=== PATIENT | female | born 1980 | race Caucasian/White ===

== ENCOUNTER 2021-01-24 10:04 | Outpatient (CLI) | payer OTHER, SELFPAY ==
--- NOTE | ~2021-01-24 | US_ITS ---
EXAMINATION: US OB <= 14 weeks fetus EXAM DATE: 01/24/2021 10:30 INDICATION: Threatened , vaginal spotting. 1st trimester. TECHNIQUE: Pelvic obstetrical transabdominal sonogram was performed by a technologist. There are mu ltiple grayscale and Doppler images available for interpretation. There are no earlier studies of th is gestation for comparison. FINDINGS: Uterus measures 10.6 x 6.5 x 8.6 cm. There is intrauterine gestation sac. The 2 cm crown -rump length corresponds to estimated gestational age by ultrasound of 8 weeks 4 days. There is no fe dana heart beat confirmed at this time as would be expected for crown-rump length this size. There i s no sonographic evidence of subchorionic hemorrhage. Left ovary morphologically normal and has Dop pler flow, right not identified. IMPRESSION: demise. Reviewed, dictated and finalized at location B. IMPRESSION: demise.
== END 2021-01-24 10:05 | disposition home or self-care (01) ==
LOC: ANHIMG 10:09
PROVIDERS: Visit Provider Obstetrics & Gynecology
DX: O20.0 Threatened abortion (principal)
CPT/HCPCS: 76801

== ENCOUNTER 2021-01-25 01:26 | Day surgery (SDC) | payer OTHER, SELFPAY ==
[2021-01-24 14:33] VITALS: BMI 32.0
--- NOTE | 2021-01-24 14:55 | WPDANESEPPF ---
Anes - Initial Pre Proc Eval Procedure: Operation Date: 01/25/21 14:30 Proposed Procedures p Suction Dilation and Curettage - Slime Clark MD Date/Time: 01/24/21 14:55 Surgeon: Slime Clark MD Pre Op Diagnosis: missed ab Patient Data Age: 40 Gender: F Height: 1.56 m Weight: 78.18 kg Allergies Allergy/AdvReac Type Severity Reaction Status Date / Time No Known Allergies Allergy Verified 10/31/17 13:41 Home Medications Medication Instructions Recorded Confirmed Type aspirin 81 mg PO DAILY 01/24/21 01/24/21 History [id number] 1 tablet PO DAILY 01/24/21 01/24/21 History [ + Iron] Patient hx anesthesia problems: none Family hx anesthesia problems: none PMF Past Medical History Medical History Obesity Smoker Social History Social History Smoking packs per day: 1.5 Smoking cigarettes per day: 30.0 Years smoked: 17 Smoking pack-years: 25.50 Smoking status: Current every day smoker Tobacco type: cigarettes Second hand tobacco smoke exposure: Yes Alcohol intake: current Alcohol use details: STATES MAYBE 3 DRINKS A YEAR Substance use: never Substance use type: does not use Spiritual care concerns: No Anes - Eval Final PreProcedure Day of Procedure 01/24/21 14:55 Patient weight: overweight Heart: regular rate and rhythm Lungs: clear to auscultation and normal air movement Airway: Mallampati scale class II Neurological: alert and oriented Last oral intake: >/= 8 hours ASA classification: II Emergent: no Anesthetic plan: proceed Anesthesia type and monitoring: general LMA Informed Consent: The patient's anesthetic plan and its attendant risks and benefits were discussed with the patient/family/POA. Questions were solicited and answers provided to the satisfaction of the patient/family/POA.
[2021-01-25] MEDS: ACETAMINOPHEN 500 MG TABLET 1000 MG PO (13:15)
[2021-01-25 13:22] VITALS: BP 112/74; PULSE 75; RESP 16; TEMP 37.1; O2SAT 99
[2021-01-25] MEDS: LACTATED RINGERS 1,000 ML 30 ML IV CONT (13:30)
--- NOTE | 2021-01-25 14:17 | PM.IMHP ---
H&P: HPI History of Present Illness Date/Time: 01/25/21 14:17 Chief Complaint: miscarriage Narrative: Vanessa is a 40yo at 11 weeks by dates, 8.5 weeks on US yesterday that showed no FHT. Rh pos. Stopped ASA yesterday. 2 prior sabs around 8 weeks, plan to send POC for cytogenetics. Review of Systems Review of Systems: All systems reviewed & are unremarkable except as noted in HPI and below PMFSH Past Medical History Medical History Obesity Smoker Social History Social History Smoking packs per day: 1.5 Smoking cigarettes per day: 30.0 Years smoked: 17 Smoking pack-years: 25.50 Smoking status: Current every day smoker Tobacco type: cigarettes Second hand tobacco smoke exposure: Yes Alcohol intake: current Alcohol use details: STATES MAYBE 3 DRINKS A YEAR Substance use: never Substance use type: does not use Spiritual care concerns: No Meds Home Medications and Allergies Home Medications Medication Instructions Recorded Confirmed Type aspirin 81 mg PO DAILY 01/24/21 01/24/21 History [id number] 1 tablet PO DAILY 01/24/21 01/24/21 History [ + Iron] Allergies Allergy/AdvReac Type Severity Reaction Status Date / Time No Known Allergies Allergy Verified 10/31/17 13:41 Exam Const: General: no acute distress Resp: Effort & Inspection: normal respiratory effort Auscultation: clear to auscultation bilaterally Cardio: Rate: regular rate Rhythm: regular rhythm GI: GI Palp: Yes Soft to palpation Extrem: General: normal to inspection Assessment and Plan Assessment and plan (1) Missed : Code(s): O02.1 - Missed Status: Acute Additional Plan Consented for suction D and C doxy intraop cytogenetics support given rh pos.
--- NOTE | 2021-01-25 14:19 | WPDHPUPDATE1 ---
History and Physical Update Update Date/Time: 01/25/21 14:19 History and Physical has been reviewed, including an updated exam of the patient. There are NO changes in the patient's condition. Risks, benefits, and alternatives have been discussed and questions answered. Patient agrees to proceed with procedure.
[2021-01-25] MEDS: BUPIVACAINE/EPINEPHRINE 0.25% 10 ML VIAL 20 ML INFILTRATE (14:23)
--- NOTE | 2021-01-25 14:47 | P.OP_ITS ---
Procedure Note - Detailed Date of Procedure 01/25/21 Pre-op Diagnosis missed ab Post-op Diagnosis same Procedure Performed suction D and C Surgeon Slime Clark MD Anesthesia MAC Description of Procedure The patient was taken to the OR and placed in supine position in dorsal lithotomy. She received MAC anesthesia and doxycycline. She was prepped and draped in normal fashion. A speculum was placed and the cervix was grasped with a single tooth tenaculum. A paracervical block was placed with 10cc 0.25% mar helena with epinephrine. The cervix was sequentially dilated to 8 flores. The suction was tested and then the suction catheter was inserted into the uterine cavity. Several passes were made until no further products of conception were obtained. The tenaculum was removed and hemostasis was obtained with pressure and monsel's solution. The speculum was removed. The patient tolerated the procedure well and was taken to the recovery room in stable condition. Drains No Packing No Pathology yes (cytogenetics) Complications No immediate complications Condition stable Disposition same day
[2021-01-25 14:50] VITALS: BP 120/68; PULSE 74; RESP 16; O2SAT 97
[2021-01-25] MEDS: oxyCODONE HCL (*CRX) 5 MG TAB IR PO (15:10)
[2021-01-25 15:15] VITALS: BP 138/86; PULSE 68; RESP 16; O2SAT 100
--- NOTE | 2021-01-25 15:33 | SUR.PREOP ---
1300 GIVEN BECAUSE WE CAR PACKET AND SENT PAPERWORK TO COORDINATOR.
[2021-01-25 15:40] VITALS: BP 122/64; PULSE 61; RESP 16; O2SAT 100
== END 2021-01-25 15:55 | disposition home or self-care (01) ==
PROVIDERS: Visit Provider Obstetrics & Gynecology
PROC: (CPT 59820; principal; 2021-01-25 14:30)
DX: O02.1 Missed abortion (principal); F17.210 Nicotine dependence, cigarettes, uncomplicated
CPT/HCPCS: 59820; 36415; 87426; 88305; A9270; C9803; J2001; J2250; J2704; J3010; J7120

== ENCOUNTER 2021-01-25 12:07 | Outpatient (CLI) | payer OTHER, SELFPAY ==
[2021-01-25 12:49] LABS: EDCOVIDSCREEN Negative (Negative)
== END 2021-01-25 12:08 | disposition home or self-care (01) ==
LOC: ANHSURGERY 12:09
PROVIDERS: Visit Provider Obstetrics & Gynecology
DX: Z01.812 Encounter for preprocedural laboratory examination (principal); Z20.822 Contact with and (suspected) exposure to COVID-19
CPT/HCPCS: 36415; 87426; C9803

== ENCOUNTER 2021-12-03 19:15 | Emergency (ER) | payer OTHER, SELFPAY ==
--- NOTE | ~2021-12-03 | US_ITS ---
EXAMINATION: US OB <= 14 weeks fetus INDICATION: vag bleed TECHNIQUE: Sonography of the pelvis was performed by transabdominal and transvaginal techniques. COMPARISON: None. RESULT: EGA 9 weeks 0 day, ROBERT 07/08/2022, both presumably from prior outside ultrasound, not available for my review at this time. Uterus: - Orientation: Anteverted - Size: 10.3 x 7.9 x 3.3 cm - Myometrium: Homogenous echogenicity. Gestation: - Intrauterine gestational sac: Single present - Mean Sac Diameter: cm, corresponding gestational age week days - Yolk sac: cm - Embryo: Single present - Natural Steps rump length: 2.7 cm, corresponding gestational age 9 weeks, 4 days -Gestational heart rate: present 159 bpm -Subgestational hematoma: Present, measuring 2.3 x 1.8 x 0.9 cm Right ovary: - Size : 1.9 x 1.4 x 1.9 cm - Normal sonographic appearance with physiologic follicles. Left ovary: - Size: 2.1 x 2.8 x 2.0 cm - Normal sonographic appearance with physiologic follicles. Pelvis free fluid: None. IMPRESSION: Single, live intrauterine gestation. Estimated Gestational Age: 9 weeks, 4 days by crown rump length. ROBERT by ultrasound 07/04/2022. Reviewed, dictated and finalized at location K. IMPRESSION: Single, live intrauterine gestation. Estimated Gestational Age: 9 weeks, 4 days by crown rump length. ROBERT by ultras ound 07/04/2022.
[2021-12-03 19:25] VITALS: BP 154/85; PULSE 93; RESP 16; TEMP 36.7; O2SAT 100
[2021-12-03 20:00] LABS: Basophils Percent Auto 0.4 % (0.2-1.2); Eosinophils Absolute Auto 0.2 K/mm3 (0-0.3); Eosinophils Percent Auto 1.9 % (0-4.4); Hematocrit 40.1 % (37.0-47.0); Hemoglobin 13.2 g/dL (12.0-15.0); Immature Granulocyte Absolute 0.02 K/mm3 (0.00-0.031); Immature Granulocyte Percent A 0.2 % (0-0.5); Lymphocytes Absolute Auto 2.99 K/mm3 (0.9-3.2); Lymphocytes Percent Auto 30.4 % (18.3-44.2); Mean Corpuscular HGB Conc 32.9 g/dl (32-36); Mean Corpuscular Hemoglobin 32.5 pg (26-34); Mean Corpuscular Volume 98.8 fl (80-100); Mean Platelet Volume 9.8 fl (7.4-10.4); Monocytes Absolute Auto 0.6 K/mm3 (0.1-0.6); Monocytes Percent Auto 5.7 % (2.6-8.5); Neutrophils Percent Auto 61.4 % (45.5-73.1); Platelet Count Result 262 k/mm3 (150-375); Red Blood Count 4.06 M/mm3 (4.2-5.4); Red Cell Distribution Width 13.2 % (11.5-14.5); White Blood Count 9.8 K/mm3 (4.5-10.0)
--- NOTE | 2021-12-03 20:07 | PC.NURSE ---
US paged by ED dental secretary @ 2004.
--- NOTE | 2021-12-03 20:38 | ED.FEMALEGU ---
HPI - Female Genitourinary General Chief complaint: SENIOR DATA MODELER Stated complaint: 9 weeks preg, back pain, discharge Time Seen by Provider: 12/03/21 19:55 History of Present Illness HPI Narrative: 41-year-old female presents the emergency room for evaluation of vaginal bleed/discharge. Reports noticing a brown discharge associated with low back pain this morning. Patient is currently 9 weeks to the care of Dr. Sweet. Denies any abdominal pain, cramping or bright red vaginal bleeding. Patient is a G8, P4, with 3 first trimester miscarriages. Patient also has a history of multiple AMIs with stent placement. Related Data Home Medications Medication Instructions Recorded Confirmed aspirin 81 mg tablet 81 mg PO DAILY 01/24/21 01/25/21 [id number]-[id number] 1 mg 1 tablet PO DAILY 01/24/21 01/25/21 tablet Allergies Allergy/AdvReac Type Severity Reaction Status Date / Time No Known Allergies Allergy Verified 01/25/21 15:16 Review of Systems Review of Systems: CONSTITUTIONAL: Denies fever, chills, or sweats. EYES: Denies visual changes, redness, or discharge. ENT: Denies rhinorrhea, congestion, sore throat, or otalgia. CARDIOVASCULAR: Denies chest pain, palpitations, or edema. RESPIRATORY: Denies cough or dyspnea. GASTROINTESTINAL: Denies abdominal pain, nausea, vomiting, or diarrhea. GENITOURINARY: Denies dysuria or hematuria. SKIN: Denies rash or itching. MUSCULOSKELETAL: Denies back pain, joint pain, or myalgia. NEUROLOGIC: Denies headache, numbness, dizziness, or weakness. PSYCHIATRIC: Denies anxiety or depression. PMFSH Past Medical History Medical History Obesity Smoker Social History Social History Smoking packs per day: 1.5 Smoking cigarettes per day: 30.0 Years smoked: 17 Smoking pack-years: 25.50 Smoking status: Current every day smoker Tobacco type: cigarettes Second hand tobacco smoke exposure: Yes Alcohol intake: current Alcohol use details: STATES MAYBE 3 DRINKS A YEAR Substance use: never Substance use type: does not use Spiritual care concerns: No Exam Narrative: GENERAL: Well-appearing, well-nourished, no physical limitations, and in no acute distress. HEAD: Normocephalic, atraumatic. EYES: Conjunctivae normal, PERRLA and EOMI. CHEST: Clear to auscultation. No respiratory distress. No wheezes rales or rhonchi. No tenderness. HEART: Regular rate and rhythm. No murmur heard. Normal peripheral pulses. ABDOMEN: Soft, nontender, nondistended, normal active bowel sounds. BACK: No CVA tenderness; No cervical/thoracic/lumbar tenderness EXTREMITIES: Normal range of motion. No edema. No clubbing or cyanosis SKIN: Warm, dry, no rash. No noted wounds NEURO: No focal deficits. Alert and oriented x3. MAEW. CN's II-XI intact bilaterally, normal gait PSYCH: Cooperative. Normal mood and affect. Course Vital Signs Vital signs: Vital Signs Temperature 36.7 C 12/03/21 19:25 Pulse Rate 93 12/03/21 19:25 Respiratory Rate 16 12/03/21 19:25 Blood Pressure 154/85 H 12/03/21 19:25 Pulse Oximetry 100 12/03/21 19:25 Oxygen Delivery Room Air 12/03/21 19:25 Temperature 36.7 C 12/03/21 19:25 Pulse Rate 93 12/03/21 19:25 Respiratory Rate 16 12/03/21 19:25 Blood Pressure 154/85 H 12/03/21 19:25 Pulse Oximetry 100 12/03/21 19:25 Oxygen Delivery Room Air 12/03/21 19:25 MDM - Female Genitourinary Lab Data Result diagrams: 12/03/21 19:54 Labs: Lab Results 12/03/21 12/03/21 12/03/21 Range/Units 19:54 19:54 19:54 WBC 9.8 (4.5-10.0) K/mm3 RBC 4.06 L (4.2-5.4) M/mm3 Hgb 13.2 (12.0-15.0) g/dL Hct 40.1 (37.0-47.0) % MCV 98.8 (80-100) fl MCH 32.5 (26-34) pg MCHC 32.9 (32-36) g/dl RDW 13.2 (11.5-14.5) % Plt Count 262 (150-375) k/mm3 MPV 9.8 (7.4-10.4) fl Immature Gran % (Auto) 0.2 (0-0.5) % Neut % (Auto)
[2021-12-03 21:38] LABS: Add Urine Microscopic? NO; Appearance Urine Clear (Clear); Bilirubin Urine Negative (Negative); Blood Urine Negative (Negative); Color Urine Yellow (Yellow); Glucose Urine UA Negative (Negative); Ketones Urine Negative (Negative); Leukocyte Esterase Ur Negative LEU/UL (Negative); Nitrate Urine Negative (Negative); Protein Urine Negative (Negative); Specific Grav Ur >= 1.030 (1.001-1.035)
== END 2021-12-03 22:03 | disposition home or self-care (01) ==
PROVIDERS: Emergency Medicine; Emergency Provider Nurse Practitioner Family
DX: O46.8X1 Other antepartum hemorrhage, first trimester (principal); O99.211 Obesity complicating pregnancy, first trimester; E66.9 Obesity, unspecified; O99.331 Smoking (tobacco) complicating pregnancy, first trimester; F17.210 Nicotine dependence, cigarettes, uncomplicated; Z3A.09 9 weeks gestation of pregnancy; Z79.82 Long term (current) use of aspirin
CPT/HCPCS: 36415; 76801; 81003; 84702; 85025; 85461; 99284

== ENCOUNTER 2022-01-31 19:55 | Emergency (ER) | payer OTHER, SELFPAY ==
--- NOTE | ~2022-01-31 | XR_ITS ---
EXAMINATION: XR chest 1V Exam Date/Time: 01/31/2022 20:15 CDT HISTORY: cp Comparison: 01/06/2008. RESULT: Lines, tubes, and devices: None. Lungs and pleura: Clear. Cardiomediastinal silhouette: Stable. Other: No acute osseous or upper abdominal finding. IMPRESSION: No acute cardiopulmonary process. Reviewed, dictated and finalized at location K.
--- NOTE | 2022-01-31 19:55 | ECG_ITS ---
Measurements Intervals [place] Rate: 75 P: 53 IN: 143 QRS: 18 QRSD: 84 T: 49 QT: 400 QTc: 448 Interpretive Statements SINUS RHYTHM NORMAL ECG NO PREVIOUS ECG AVAILABLE FOR COMPARISON Electronically Signed On 01-31-2022 20:18:26 CDT by Félix Conrad D.O.
[2022-01-31 20:04] VITALS: BP 118/66; PULSE 77; RESP 16; TEMP 36.6; O2SAT 99
--- NOTE | 2022-01-31 21:06 | PC.NURSE ---
CALLED TO TAKE THE PT TO ROOM, NOT IN LOBBY, APPEARS TO HAVE LEFT THE DEPT
== END 2022-01-31 21:06 | disposition left against medical advice (07) ==
PROVIDERS: Emergency Provider Emergency Medicine
DX: R07.9 Chest pain, unspecified (principal)
CPT/HCPCS: 71045; 93005; 99199

== ENCOUNTER 2022-02-10 18:11 | Observation (INO) | payer OTHER, SELFPAY ==
[2022-02-10 18:20] VITALS: BMI 34.9
[2022-02-10 18:34] VITALS: BP 150/127; PULSE 68
[2022-02-10 18:45] VITALS: BP 105/55; PULSE 65
[2022-02-10 19:00] VITALS: BP 103/62; PULSE 64
--- NOTE | 2022-02-10 19:04 | OBADM ---
This patient, Vanessa Deleon, admitted to the OB room OB Post 117 for observation. Patient/family oriented to hospital policies and general routines including ID bracelet, bed and alarms, visiting hours, pain management, procedures, bathroom and other care routines, personal items, smoking policy, room service/diet, and visiting hours. Patient/Family are encouraged to report perceived risks to care and to ask questions if they do not understand what they are told or what they should do.
[2022-02-10 19:15] VITALS: BP 106/58; PULSE 62
--- NOTE | 2022-02-14 06:15 | PM.OBTRLD ---
OB - Triage/Final Diagnosis Visit Information Date of evaluation: 02/10/22 Reason for evaluation: other (bleeding) Comments/Additional reasons for admission: I have assessed the risk for this patient, Vanessa Deleon, and determined that she would benefit from observation care.
== END 2022-02-10 19:20 | disposition home or self-care (01) ==
PROVIDERS: Admitting Provider Obstetrics & Gynecology; Visit Provider Obstetrics & Gynecology
DX: O46.90 Antepartum hemorrhage, unspecified, unspecified trimester (principal); Z3A.00 Weeks of gestation of pregnancy not specified
CPT/HCPCS: G0378; G0379

== ENCOUNTER 2022-03-16 14:40 | Outpatient (CLI) | payer OTHER, SELFPAY ==
--- NOTE | 2022-03-16 14:50 | ECHO_ITS ---
Patient Info Name: Vanessa Deleon Age: 42 years : 1980 Gender: Female Ht: 61 in Wt: 188 lbs BSA: 1.96 m2 HR: 80 bpm BP: 121 / 71 mmHg Technical Quality: Fair Exam Date: 03/16/2022 3:24 PM Exam Location: [facility] Patient Status: Outpatient Admit Date: 03/16/2022 Staff Ordering Physician: Félix Conrad DO Mine Surveyor: Annika Austin RDCS Attending Provider: Félix Conrad DO Referring Physician: Houston SMITH; Exam Type: CA echo doppler color flow Study Info Indications - stent cad Complete two-dimensional, color flow and Doppler transthoracic echocardiogram is performed. Summary 1. Complete two-dimensional, color flow and Doppler transthoracic echocardiogram is performed. 2. Left ventricular chamber dimension is normal. 3. Left ventricular systolic function is normal, estimated at 65-70%. 4. The left ventricular diastolic function is normal. 5. E/e' 6 is not elevated. 6. Global longitudinal strain is normal at -23.9%. 7. There is trace mitral valve regurgitation. 8. There is trace tricuspid valve regurgitation. 9. Mild pulmonary hypertension, estimated pulmonary arterial systolic pressure is 43 mmHg. Left Ventricle E/e' 6 is not elevated. Global longitudinal strain is normal at -23.9%. Left ventricular chamber dimension is normal. Left ventricular systolic function is normal, estimated at 65-70%. The left ventricular diastolic function is normal. Right Ventricle Right ventricular systolic function is normal and with normal TAPSE 2.1 cm. Right ventricular chamber dimension is normal. Left Atria Left atrial chamber dimension is normal. Right Atria Right atrial chamber dimension is normal. Aortic Valve The aortic valve is trileaflet. There is no aortic valve stenosis. There is no aortic valve regurgitation. Pulmonic Valve There is no pulmonic regurgitation. Mitral Valve There is no mitral valve stenosis. There is trace mitral valve regurgitation. Tricuspid Valve There is trace tricuspid valve regurgitation. Mild pulmonary hypertension, estimated pulmonary arterial systolic pressure is 43 mmHg. Pericardium/Pleural There is no pericardial effusion. Inferior Vena Cava Normal inferior vena cava with >50% collapse upon inspiration consistent with normal right atrial pressure, 5 mmHg. Aorta The aortic root size at the sinus of Valsalva is normal. Left Ventricular Outflow Tract Name Value Normal LVOT 2D LVOT Diameter 2.0 cm LVOT Doppler LVOT Peak Gradient 8 mmHg LVOT Mean Gradient 4 mmHg LVOT VTI 25 cm LVOT VTI/AV VTI Ratio 0.9 LVOT Stroke Volume 73 ml LVOT CO 16.5 l/min LVOT CI 8.5 l/min/m2 Pulmonic Valve Name Value Normal PV Doppler
== END 2022-03-16 14:41 | disposition home or self-care (01) ==
LOC: ANHCARD 14:44
PROVIDERS: Visit Provider Internal Medicine Cardiovascular Disease
DX: I25.10 Atherosclerotic heart disease of native coronary artery without angina pectoris (principal); I37.1 Nonrheumatic pulmonary valve insufficiency
CPT/HCPCS: 93306

== ENCOUNTER 2022-04-06 18:10 | Emergency (ER) | payer OTHER, SELFPAY ==
[2022-04-06 18:29] VITALS: BP 119/67; PULSE 87; RESP 18; TEMP 37.1; O2SAT 100
[2022-04-06 19:27] LABS: Influenza A QL RT-PCR Positive (Negative); Influenza B QL RT-PCR Negative (Negative); RSV RNA, RT-PCR Negative (Negative); SARS-CoV-2 RNA PCR Negative
== END 2022-04-06 18:30 | disposition left against medical advice (07) ==
PROVIDERS: Emergency Provider Emergency Medicine
DX: R05.9 Cough, unspecified (principal); Z20.822 Contact with and (suspected) exposure to COVID-19
CPT/HCPCS: 87637; 99199

== ENCOUNTER 2022-08-09 08:54 | Emergency (ER) | payer OTHER, SELFPAY ==
[2022-08-09] VITALS (17 sets, daily range): BP systolic 112–182; BP diastolic 68–100; PULSE 48–60; RESP 8–22; O2SAT 95–100
--- NOTE | ~2022-08-09 | XR_ITS ---
EXAMINATION: XR chest 2V DATE: 08/09/2022 09:45 INDICATION: Chest pain. TECHNIQUE: Frontal and lateral views of the chest were obtained. COMPARISON: Chest single view 01/31/2022 FINDINGS: The chest demonstrates clear lungs without pneumonia, pleural effusion, or pneumothorax. Th e heart size is normal. IMPRESSION: 1. No acute cardiopulmonary disease. Reviewed, dictated and finalized at location A.
--- NOTE | 2022-08-09 09:00 | ECG_ITS ---
Measurements Intervals [place] Rate: 51 P: 46 TN: 148 QRS: 29 QRSD: 92 T: 52 QT: 434 QTc: 403 Interpretive Statements SINUS BRADYCARDIA BORDERLINE ECG COMPARED TO ECG 01/31/2022 20:03:01 SINUS BRADYCARDIA NOW PRESENT Electronically Signed On 08-09-2022 9:17:35 CDT by Félix Conrad D.O.
[2022-08-09] MEDS: ASPIRIN 81 MG CHEWABLE TABLET 324 MG PO (09:04)
--- NOTE | 2022-08-09 09:18 | ED.CHESTPAIN ---
HPI - Chest Pain General Chief Complaint: Chest Pain Stated Complaint: chest pains Time Seen by Provider: 08/09/22 09:05 History of Present Illness HPI narrative: 6-year-old female history of coronary artery disease with multiple stents presents to the emergency room for evaluation of intermittent chest pain for 3 days. States pain is worse with inspiration and certain movements. Pain is not exacerbated by activity or exertion. Denies any shortness of breath difficulty breathing. Denies any nausea vomiting or syncopal events. Denies any radiating pain. Patient denies any recent URI. Related Data Home Medications Medication Instructions Recorded Confirmed aspirin 81 mg tablet 81 mg PO DAILY 01/24/21 02/19/22 [id number] 1 mg 1 tablet PO DAILY 01/24/21 02/19/22 tablet carvedilol 3.125 mg tablet 3.125 mg 08/09/22 Allergies Allergy/AdvReac Type Severity Reaction Status Date / Time No Known Allergies Allergy Verified 08/09/22 09:00 Review of Systems Review of Systems: CONSTITUTIONAL: Denies fever, chills, or sweats. EYES: Denies visual changes, redness, or discharge. ENT: Denies rhinorrhea, congestion, sore throat, or otalgia. CARDIOVASCULAR: Reports chest pain, denies palpitations or edema. RESPIRATORY: Denies cough or dyspnea. GASTROINTESTINAL: Denies abdominal pain, nausea, vomiting, or diarrhea. GENITOURINARY: Denies dysuria or hematuria. SKIN: Denies rash or itching. MUSCULOSKELETAL: Denies back pain, joint pain, or myalgia. NEUROLOGIC: Denies headache, numbness, dizziness, or weakness. PSYCHIATRIC: Denies anxiety or depression. PMFSH Past Medical History Medical History Obesity Smoker Social History Social History Smoking packs per day: 1.5 Smoking cigarettes per day: 30.0 Years smoked: 17 Smoking pack-years: 25.50 Smoking status: Current every day smoker Tobacco type: cigarettes Second hand tobacco smoke exposure: Yes Alcohol intake: current Alcohol use details: STATES MAYBE 3 DRINKS A YEAR Substance use: never Substance use type: does not use Spiritual care concerns: No Exam Narrative: GENERAL: Well-appearing, well-nourished, no physical limitations, and in no acute distress. HEAD: Normocephalic, atraumatic. EYES: Conjunctivae normal, PERRLA and EOMI. NECK: Supple. No meningeal signs. No adenopathy or masses. No carotid bruits or JVD CHEST: Clear to auscultation. No respiratory distress. No wheezes rales or rhonchi. No tenderness. HEART: Regular rate and rhythm. No murmur heard. Normal peripheral pulses. BACK: No CVA tenderness; No cervical/thoracic/lumbar tenderness, step-offs, bony abnormality; FROM EXTREMITIES: Normal range of motion. No edema. No clubbing or cyanosis SKIN: Warm, dry, no rash. No noted wounds NEURO: No focal deficits. Alert and oriented x3. MAEW. CN's II-XI intact bilaterally, normal gait PSYCH: Cooperative. Normal mood and affect. Course Vital Signs Vital signs: Vital Signs Pulse Rate 58 L 08/09/22 09:01 Respiratory Rate 8 L 08/09/22 09:01 Blood Pressure 152/96 H 08/09/22 09:01 Pulse Oximetry 100 08/09/22 09:01 Pulse Rate 54 L 08/09/22 11:47 Respiratory Rate 21 H 08/09/22 11:47 Blood Pressure 112/73 08/09/22 11:31 Pulse Oximetry 100 08/09/22 11:47 MDM - Chest Pain MDM Narrative Medical decision making narrative: 42-year-old female history of coronary artery disease presented emergency room complaints of intermittent chest pain is worse with inspiration and movement for 3 days. Exam showed no evidence of volume overload. EKG showed no signs of active ischemia. Single troponin and delta troponin were both negative. Presentation not consistent with acute PE pneumothorax, pneumonia or pericarditis. Heart score was a 1 so we will send patient home with close follow-up with her PCP or preschool program director. Lab Data 08/09/22 09:11
[2022-08-09 09:20] LABS: Basophils Absolute Auto 0.1 K/mm3 (0.0-0.1); Basophils Percent Auto 0.5 % (0.2-1.2); Eosinophils Absolute Auto 0.3 K/mm3 (0-0.3); Eosinophils Percent Auto 2.3 % (0-4.4); Hematocrit 45.5 % (37.0-47.0); Hemoglobin 14.9 g/dL (12.0-15.0); Immature Granulocyte Absolute 0.03 K/mm3 (0.00-0.031); Immature Granulocyte Percent A 0.2 % (0-0.5); Lymphocytes Absolute Auto 2.98 K/mm3 (0.9-3.2); Lymphocytes Percent Auto 21.8 % (18.3-44.2); Mean Corpuscular HGB Conc 32.7 g/dl (32-36); Mean Corpuscular Hemoglobin 33.6 pg (26-34); Mean Corpuscular Volume 102.5 fl (80-100); Mean Platelet Volume 11.3 fl (7.4-10.4); Monocytes Absolute Auto 0.7 K/mm3 (0.1-0.6); Neutrophils Absolute Auto 9.6 K/mm3 (1.3-6.7); Neutrophils Percent Auto 70.2 % (45.5-73.1); Platelet Count Result 355 k/mm3 (150-375); Red Blood Count 4.44 M/mm3 (4.2-5.4); Red Cell Distribution Width 12.8 % (11.5-14.5); White Blood Count 13.7 K/mm3 (4.5-10.0)
[2022-08-09 09:31] LABS: Alanine Aminotransferase 15 U/L (6-35); Albumin Level 4.3 g/dL (3.5-5.1); Alkaline Phosphatase 56 U/L (38-126); Anion Gap 6 mmol/L (8-16); Aspartate Amino Transferase 21 U/L (14-36); Bilirubin,Total 0.6 mg/dL (0.2-1.3); Blood Urea Nitrogen 14 mg/dL (7-17); Calcium 8.7 mg/dL (8.4-10.2); Carbon Dioxide 25 mmol/L (22-30); Chloride 106 mmol/L (98-107); Estimated CRCL calculation 103 ml/min; Estimated Glomerular Filt Rate > 60; Glucose 127 mg/dL (65-110); Lipase 82 U/L (23-300); Potassium 4.7 mmol/L (3.4-5.0); Sodium 137 mmol/L (137-145)
[2022-08-09 09:41] LABS: Troponin I < 0.012 ng/mL (0.000-0.034)
[2022-08-09 10:31] LABS: INR 0.9; Prothrombin Time 12.2 Seconds (11.1-14.7)
[2022-08-09 10:32] LABS: Partial Thromboplastin Time 27.7 SECONDS (22.3-36.8)
[2022-08-09 12:16] LABS: Troponin I < 0.012 ng/mL (0.000-0.034)
== END 2022-08-09 12:37 | disposition home or self-care (01) ==
PROVIDERS: Emergency Medicine; Emergency Provider Nurse Practitioner Family
DX: R07.89 Other chest pain (principal); I25.10 Atherosclerotic heart disease of native coronary artery without angina pectoris; F17.210 Nicotine dependence, cigarettes, uncomplicated; E66.9 Obesity, unspecified; Z68.34 Body mass index [BMI] 34.0-34.9, adult; Z95.5 Presence of coronary angioplasty implant and graft; R00.1 Bradycardia, unspecified
CPT/HCPCS: 36415; 71046; 80053; 83690; 84484; 85025; 85610; 85730; 93005; 99284; A9270

== ENCOUNTER 2022-09-01 07:29 | Outpatient (CLI) | payer OTHER, SELFPAY ==
[2022-09-01 10:55] LABS: Alanine Aminotransferase 13 U/L (6-35); Alkaline Phosphatase 54 U/L (38-126); Anion Gap 3 mmol/L (8-16); Aspartate Amino Transferase 16 U/L (14-36); Bilirubin,Total 0.5 mg/dL (0.2-1.3); Blood Urea Nitrogen 12 mg/dL (7-17); Calcium 8.8 mg/dL (8.4-10.2); Carbon Dioxide 30 mmol/L (22-30); Chloride 107 mmol/L (98-107); Cholesterol 304 mg/dL (0-200); Estimated Glomerular Filt Rate > 60; Glucose 120 mg/dL (65-110); HDL Direct 38 mg/dL; Potassium 4.1 mmol/L (3.4-5.0); Sodium 140 mmol/L (137-145); Triglycerides 98 mg/dL (<150)
[2022-09-01 11:06] LABS: LDL Cholesterol Direct 225 mg/dL
== END 2022-09-01 07:30 | disposition home or self-care (01) ==
PROVIDERS: Visit Provider Internal Medicine Cardiovascular Disease
DX: I25.10 Atherosclerotic heart disease of native coronary artery without angina pectoris (principal)
CPT/HCPCS: 36415; 80053; 80061

== ENCOUNTER 2022-10-31 01:53 | Day surgery (SDC) | payer OTHER, SELFPAY ==
[2022-10-25 10:03] VITALS: BMI 34.0
--- NOTE | 2022-10-25 10:38 | PC.NURSE ---
Report to the Outpatient Waiting Room, entrance under the green pavilion located off [facility], at 0700 on 10-31-22. Planned Procedure Time: 0900. Time changes happen often and if your time is changed the preop area will call you the afternoon before. - You and your visitor will be asked to self-screen and do not enter if you have any COVID symptoms. - A mask is optional within the hospital at this time. Patients may have clear liquids (water, carbonated beverages, clear teas, apple juice) until 3 hours prior to surgery with a maximum of 20 ounces. 0600 - No food from midnight until time of surgery - Infants may have breast milk until 4 hours before surgery, formula 6 hours prior to surgery. - Children will be allowed to drink immediately following surgery. If applicable, please bring a bottle or sippy cup to assist with drinking. Juice, water, soda, and popsicles are readily available. For infants on formula, please bring formula the day of surgery. Pacifiers are allowed. Take the following medications with a SIP of water the morning of surgery: Carvedilol DO NOT STOP ANY OF YOUR OTHER PRESCRIPTION MEDICATIONS PRIOR TO SURGERY ?EXCEPT THE FOLLOWING Medications to discontinue per physician: Aspirin Date to take last dose: Per Heading Maker Please no make-up, nail greenlandic, hairspray, perfume, deodorant, or body powder the day of surgery. No jewelry (including any body piercings) or valuables the day of surgery, leave them at home. Please take a shower or bath the night before, or the morning of, surgery with an antibacterial soap. Wear comfortable, loose fitting clothing. Children are encouraged to wear pajamas. - Jewelry must be removed prior to entering the operating room. Rings and piercings that are not removed may be cut off. - The hospital will not accept responsibility for valuables. - Please leave all valuables, including medications, at home the day of surgery. If you are going home after surgery, a licensed subway train driver must drive you home. - NO public transportation without another adult if you receive anesthesia. - We recommend that an adult stay with you for 24 hours following discharge. - We also recommend that you do not drive, make important decision, drink alcoholic beverages, or take any drugs that were not prescribed by your health care provider for at least 24 hours after your discharge time. For Pediatric surgeries, we recommend two adults accompany the child home. Follow any additional instructions given to you from your surgeon. If you or anyone in your household have experienced Covid symptoms in the past week, please notify your surgeon or the nurse liaison at the phone number below for possible testing. Telephone instructions given to Vanessa Deleon and asked if any additional questions and then verbalized understanding. Patient advised to call surgeon office or pre surgery nurse liaison [phone] if any additional questions.
[2022-10-31 07:30] VITALS: BP 141/73; PULSE 70; RESP 18; TEMP 36.2; O2SAT 98
[2022-10-31] MEDS: LACTATED RINGERS 1,000 ML 30 ML IV CONT ×2 (08:00→09:46)
[2022-10-31] MEDS: ACETAMINOPHEN 500 MG TABLET 1000 MG PO (08:00)
--- NOTE | 2022-10-31 08:26 | PM.IMHP ---
H&P: HPI History of Present Illness Date/Time: 10/31/22 08:26 Chief Complaint: heavy vaginal bleeding Narrative: this patient is a 42-year-old female with severe menorrhagia. We have agreed to perform endometrial ablation with hysteroscopy. She understands risks. She understands the procedure. Is been explained to her in detail. She understands that injuries may occur that result in hospitalization, more surgery, and severe illness. She understands risk of hemorrhage and infection. She denies any chest pain shortness of breath. She denies any nausea, vomiting, fever, chills. Review of Systems Review of Systems: All systems reviewed & are unremarkable except as noted in HPI and below Constitutional: Constitutional: Denies chills, Denies fatigue, Denies fever(s) and Denies weakness Eyes: Eyes: Denies blurry vision, Denies change in vision, Denies loss of peripheral vision, Denies loss of vision, Denies other visual disturbances and Denies eye pain ENT: Denies vertigo, Denies dizziness, Denies hearing loss, Denies mouth pain, Denies nasal obstruction, Denies neck mass and Denies neck pain Cardiovascular: Cardiovascular: Denies chest pain, Denies diaphoresis, Denies syncope, Denies leg edema and Denies dyspnea Respiratory: Respiratory: Denies chest congestion, Denies cough, Denies hemoptysis, Denies dyspnea and Denies wheezing Gastrointestinal: Gastrointestinal: Denies abdominal pain, Denies constipation, Denies diarrhea, Denies nausea and Denies vomiting Genitourinary: Genitourinary: Denies hematuria, Denies change in libido, Denies nocturia, Denies genital lesions, Denies flank pain and Denies urinary urgency Musculoskeletal: Musculoskeletal: Denies abnormal gait, Denies back pain, Denies myalgias, Denies arthralgias, Denies joint swelling, Denies muscle weakness and Denies neck pain Integumentary/Breasts: Skin/Breast: Denies swelling, Denies breast pain, Denies breast mass, Denies dry skin, Denies nipple discharge, Denies unusual bruising and Denies jaundice Neurologic: Denies Neuro-related abnormal movements, Denies Abnormal speech present, Denies abnormal gait, Denies behavioral changes, Denies confusion, Denies vertigo, Denies dizziness, Denies syncope, Denies loss of vision, Denies memory loss, Denies convulsions and Denies weakness Psychiatric: Psychiatric: Denies abnormal sleep pattern, Denies behavioral changes, Denies change in libido, Denies confusion, Denies depression, Denies anhedonia and Denies memory loss Endocrine: Endocrine: Reports no additional endocrine complaints, Denies change in libido and Denies fatigue Hematologic/Lymphatic: Hematologic/Lymphatic: Reports no additional hematologic/lymphatic complaints Allergic/Immunologic: Allergic/Immunologic: Reports no additional allergic/immunologic complaints and Denies wheezing PMFSH Past Medical History Medical History Obesity Smoker Social History Social History Smoking packs per day: 2 Smoking cigarettes per day: 40.0 Years smoked: 20 Smoking pack-years: 40.00 Smoking status: Current every day smoker Tobacco type: cigarettes Second hand tobacco smoke exposure: No Additional smoking assessment comments: smokes 1-2 packs per day Alcohol intake: never Alcohol use details: STATES MAYBE 3 DRINKS A YEAR Substance use: never Substance use type: does not use Living arrangements: with family Spiritual care concerns: No Meds Home Medications and Allergies Home Medications Medication Instructions Recorded Confirmed Type rosuvastatin 20 mg tablet 20 mg PO DAILY #90 tabs 09/03/22 10/25/22 Rx aspirin 81 mg tablet 81 mg PO DAILY 10/25/22 10/31/22 History carvedilol 3.125 mg tablet 3.125 mg PO BID #180 tabs 10/25/22 10/31/22 Rx Allergies Allergy/AdvReac Type Severity Reaction Status Date / Time No Known Allergies Allergy Verified 10/31/22 08:23 Exam Const:
--- NOTE | 2022-10-31 08:28 | WPDHPUPDATE1 ---
History and Physical Update Update Date/Time: 10/31/22 08:28 History and Physical has been reviewed, including an updated exam of the patient. There are NO changes in the patient's condition. Risks, benefits, and alternatives have been discussed and questions answered. Patient agrees to proceed with procedure.
--- NOTE | 2022-10-31 08:31 | P.PNAN_ITS ---
Anes - Initial Pre Proc Eval Procedure: Operation Date: 10/31/22 09:00 Proposed Procedures p Hysteroscopy with Marlyn Endometrial Ablation - Gary Sweet MD Date/Time: 10/31/22 08:31 Surgeon: Gary Sweet MD Pre Op Diagnosis: Menorrhagia Patient Data Age: 42 Gender: F Height: 1.57 m Weight: 88.4 kg Last Vital Signs Temp 36.2 C L 10/31/22 07:30 Pulse 70 10/31/22 07:30 Resp 18 10/31/22 07:30 BP 141/73 H 10/31/22 07:30 Pulse Ox 98 10/31/22 07:30 O2 Del Method Room Air 10/31/22 07:30 Allergies Allergy/AdvReac Type Severity Reaction Status Date / Time No Known Allergies Allergy Verified 10/31/22 08:23 Home Medications Medication Instructions Recorded Confirmed Type rosuvastatin 20 mg tablet 20 mg PO DAILY #90 tabs 09/03/22 10/25/22 Rx aspirin 81 mg tablet 81 mg PO DAILY 10/25/22 10/31/22 History carvedilol 3.125 mg tablet 3.125 mg PO BID #180 tabs 10/25/22 10/31/22 Rx Patient hx anesthesia problems: none Family hx anesthesia problems: none Results Review: All pre-operative results and documents have been reviewed as part of the pre- operative evaluation. FOR[facility]LY [facility], [facility] Past Medical History Medical History Obesity Smoker Surgical History Surgical History (Updated 10/31/22 @ 08:32 by Adiel Sepulveda MD) History of coronary artery stent placement Social History Social History Smoking packs per day: 2 Smoking cigarettes per day: 40.0 Years smoked: 20 Smoking pack-years: 40.00 Smoking status: Current every day smoker Tobacco type: cigarettes Second hand tobacco smoke exposure: No Additional smoking assessment comments: smokes 1-2 packs per day Alcohol intake: never Alcohol use details: STATES MAYBE 3 DRINKS A YEAR Substance use: never Substance use type: does not use Living arrangements: with family Spiritual care concerns: No Anes - Eval Final PreProcedure Day of Procedure 10/31/22 08:31 Patient weight: obese Heart: regular rate and rhythm Lungs: clear to auscultation Airway: Mallampati scale class II Neurological: alert and oriented Last oral intake: >/= 8 hours ASA classification: III Emergent: no Anesthetic plan: proceed Anesthesia type and monitoring: general GIVS and standard monitoring Results Review: All pre-operative results and documents have been reviewed as part of the pre- operative evaluation. Informed Consent: The patient's anesthetic plan and its attendant risks and benefits were discussed with the patient/family/POA. Questions were solicited and answers provided to the satisfaction of the patient/family/POA.
[2022-10-31] MEDS: LIDOCAINE HCL 1% LOCAL INJ 20 ML VIAL 10 ML INFILTRATE (08:55)
[2022-10-31 09:06] VITALS: BP 87/50; PULSE 57; RESP 14; O2SAT 99
--- NOTE | 2022-10-31 09:07 | W.PM.PROC2 ---
Procedure Note - Detailed Date of Procedure 10/31/22 Pre-op Diagnosis Menorrhagia Post-op Diagnosis Same Procedure Performed endometrial ablation with hysteroscopy d&c Surgeon Gary Sweet MD Anesthesia MAC Indications Severe menorrhagia Findings Normal vulva vagina and cervix. Normal endometrium. Description of Procedure The patient was taken to the operating room. She was prepped and draped in the dorsal lithotomy position after induction of mac anesthesia. A speculum was placed in the vagina. Cervix grasped with a tenaculum. The cervix was dilated to about 1 cm. The hysteroscope was inserted. The above findings were noted. Endometrial curettage was performed with a medium-size curette. All surfaces of the endometrium were affected by the curettage. The specimens were collected and sent to pathology. Measurements were taken of the uterus and cervix. The uterine length was then entered into the hand piece of the Marlyn device. The device was inserted into the intrauterine cavity. The array of the device was expanded. The balloon cuff was inflated. A good seal was achieved. The energy and safety cycles were initiated and completed. The array was collapsed and the instrument was withdrawn after deflating the balloon cuff. Hysteroscope was reinserted. Above findings were noted. The hysteroscope was removed. The patient tolerated the procedure well. The speculum and tenaculum were removed. She was taken to recovery in stable condition. Sponge lap and needle counts were correct x2. Estimated Blood Loss 15 Pathology Yes Complications No immediate complications Condition Stable Disposition Same day
[2022-10-31 09:15] VITALS: BP 123/61; PULSE 49; RESP 14
[2022-10-31] MEDS: oxyCODONE HCL (*CRX) 5 MG TAB IR PO (09:42)
[2022-10-31] MEDS: fentaNYL CITRATE INJ (*CRX) 100 MCG/2 ML VIAL 25 MCG IV PUSH ×2 (09:43→09:54)
[2022-10-31 09:45] VITALS: BP 102/53; PULSE 50; RESP 14; O2SAT 97
[2022-10-31 10:15] VITALS: BP 114/56; PULSE 49; RESP 14; O2SAT 98
== END 2022-10-31 10:35 | disposition home or self-care (01) ==
PROVIDERS: Visit Provider Obstetrics & Gynecology
PROC: 0U5B8ZZ Destruction of Endometrium, Via Natural or Artificial Opening Endoscopic (ICD-10-PCS; CPT 58563; principal; 2022-10-31 09:00)
DX: N92.0 Excessive and frequent menstruation with regular cycle (principal); F17.210 Nicotine dependence, cigarettes, uncomplicated; E66.9 Obesity, unspecified; Z68.35 Body mass index [BMI] 35.0-35.9, adult; Z79.82 Long term (current) use of aspirin
CPT/HCPCS: 58563; 88305; A9270; J1100; J2250; J2405; J2704; J3010; J7120

== ENCOUNTER 2023-07-02 10:00 | Outpatient (CLI) | payer OTHER, SELFPAY ==
[2023-07-02 10:48] LABS: Alanine Aminotransferase 16 U/L (6-35); Albumin Level 4.1 g/dL (3.5-5.1); Alkaline Phosphatase 69 U/L (38-126); Anion Gap 6 mmol/L (8-16); Aspartate Amino Transferase 20 U/L (14-36); Bilirubin,Total 0.5 mg/dL (0.2-1.3); Blood Urea Nitrogen 12 mg/dL (7-17); Calcium 9.2 mg/dL (8.4-10.2); Carbon Dioxide 28 mmol/L (22-30); Chloride 106 mmol/L (98-107); Cholesterol 159 mg/dL (0-200); Estimated Glomerular Filt Rate > 60; Glucose 141 mg/dL (65-110); HDL Direct 31 mg/dL; Potassium 4.5 mmol/L (3.4-5.0); Sodium 140 mmol/L (137-145); Triglycerides 84 mg/dL (<150)
[2023-07-02 10:59] LABS: LDL Cholesterol Direct 113 mg/dL
== END 2023-07-02 10:01 | disposition home or self-care (01) ==
LOC: ANHLAB 10:02
PROVIDERS: Visit Provider Internal Medicine Cardiovascular Disease
DX: E78.5 Hyperlipidemia, unspecified (principal)
CPT/HCPCS: 36415; 80053; 80061